=== PATIENT | female | born 2000 | race Caucasian/White ===

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

== ENCOUNTER 2025-05-28 18:02 | Emergency (ER) | payer BC, OTHER ==
[2025-05-28] MEDS ORDERED: Ibuprofen 200 MG TAB ONE (19:07)
== END 2025-05-28 19:30 | disposition home or self-care (01) ==
LOC: NAV ERS 18:02
DX: B34.9 Viral infection, unspecified (principal); F17.290 Nicotine dependence, other tobacco product, uncomplicated
CPT/HCPCS: 99283